=== PATIENT | male | born 1975 | race African-American/Black ===

== ENCOUNTER 2017-02-17 08:45 | Emergency (ER) | payer BC ==
[2017-02-17 08:56] VITALS: BP 132/87
--- NOTE | 2017-02-17 09:50 | RAD ---
INDICATION: Left foot injury. TECHNIQUE: 3 views of the left foot were obtained. FINDINGS: There is soft tissue swelling present over the dorsal aspect of the foot. The bones are normal alignment. No fracture is seen. Joint spaces appear maintained. IMPRESSION: NO EVIDENCE FOR FRACTURE, IF THE PATIENT'S SYMPTOMS PERSIST, RECOMMEND FOLLOW-UP IMAGING.
--- NOTE | 2017-02-17 10:19 | UC ---
Donny Li Angela, [facility] on 02/17/17 at 0923 . Lower Extremity/Ankle HPI - HPI Summary HPI Summary: In Room Note: This pt is as 41 y/o male presenting to [facility] c/o of left foot pain s/p dropping 25 lbs on his left foot yesterday. Pt reports he was finishing lifting weights when he dropped on his left foot. Pt denies knee pain, ankle pain, nausea, vomiting, abd pain, back pain. Pt works for the [employer] and runs [employer] business. He has never been hospitalized. No PMHx. MDs Note: Left foot pain and swelling. Vital signs are stable, blood pressure is 132/87. 5 /10 pain. Pt is not on any medications. Visit history is noncontributory to the present complaint. Nurses Note: Dropped 25 lbs weight on left foot yesterday. States swelling and pain to top of foot since. Denies pain in toes. - History of Current Complaint Chief Complaint: UCLowerExtremity Stated Complaint: FOOT INJURY Time Seen by Provider: 02/17/17 09:12 Hx Obtained From: Patient Onset/Duration: Sudden Onset - s/p dropping 25 lbs weight on left foot Alleviating Factor(s): Nothing Related History: Other - gym injury - Allergies/Home Medications Allergies/Adverse Reactions: Allergies Allergy/AdvReac Type Severity Reaction Status Date / Time Azithromycin Allergy Palpitation Verified 02/17/17 08:49 s PMH/Surg Hx/FS Hx/Imm Hx Other Endocrine History: DENIES: Diabetes Other Cardiovascular History: DENIES: htn - Surgical History Surgical History: None - Family History Known Family History: Positive: Hypertension, Diabetes, Other - Cancer: mother - Social History Alcohol Use: Occasionally Substance Use Type: None Smoking Status (MU): Never Smoked Tobacco Review of Systems Constitutional: Negative Skin: Negative Eyes: Negative ENT: Negative Respiratory: Negative Cardiovascular: Negative Gastrointestinal: Negative Genitourinary: Negative Motor: Negative Neurovascular: Negative Musculoskeletal: Other: - left foot pain Neurological: Negative All Other Systems Reviewed And Are Negative: Yes Physical Exam Triage Information Reviewed: Yes Vital Signs: Initial Vital Signs Temp 97.5 F 02/17/17 08:51 Pulse 68 02/17/17 08:51 Resp 16 02/17/17 08:51 BP 132/87 02/17/17 08:51 Vital Signs Reviewed: Yes - Additional Comments The patient is well-nourished in no acute distress and in no acute pain. The skin is warm and dry and skin color reflects adequate perfusion. HEENT: The head is normocephalic and atraumatic. The pupils are equal and reactive. The conjunctivae are clear and without drainage. Nares are patent and without drainage. Mouth reveals moist mucous membranes and the throat is without erythema and exudate. The external ears are intact. The ear canals are patent and without drainage. The tympanic membranes are intact. Neck is supple with full range of motion and non-tender. There are no carotid bruits. There is no neck vein distension. Respiratory: Chest is non-tender. Lungs are clear to auscultation and breath sounds are symmetrical and equal. Cardiovascular: Hear is regular rate and rhythm. There is no murmur or rub auscultated. There is no peripheral edema and pulses are symmetrical and equal. Abdomen: The abdomen is soft and non-tender. There are normal bowel sounds heard in all four quadrants and there is no organomegaly palpated. Musculoskeletal: There is no back pain noted. There is good capillary refill. There is no peripheral edema or calf tenderness elicited. LLE: ACHILLES TENDON IS INTACT. NEGATIVE ANTERIOR DRAWER. Neurological: Patient is alert and oriented to person, place and time. The patient has symmetrical motor strength in all four extremities. Psychiatric: The patient has an appropriate affect and does not exhibit any anxiety or depression. Diagnostics - Radiology Left Foot XR Xray Interpretation: No Acute Changes - IMPRESSION: No evidence for fracture, if the patient's symptoms persist, recommend follow-up imaging. ED physician has reviewed this radiology report and agrees. Radiology Interpretation Completed By: Radiologist Lower Extremity Course/Dx - Course Course Of Treatment: Medications have been included in the original chart and reviewed. Patient is Urgent/Emergent. BP elevated due to current condition w/o HTN in PMH. On exam of LEFT LOWER EXTREMITY, ACHILLES TENDON IS INTACT. NEGATIVE ANTERIOR DRAWER. XR shows no evidence for fracture, if the patient's symptoms persist, recommend follow-up imaging. - Differential Dx/Diagnosis Provider Diagnoses: Contusion of the left foot. Discharge - Discharge Plan Condition: Stable Disposition: HOME Patient Education Materials: Contusion in Adults (ED) Forms: *Work Release Referrals: Non Staff,Doctor [Primary Care Provider] - Additional Instructions: WE DISCUSSED: 1. YOU have NOT broken any bones. There is soft tissue swelling. 2. Restrict activity until you are pain free. 3. Warm moist heat in the morning; ice after use for acute pain. 4. Recheck at any time for increased pain or disability. The documentation as recorded by the Donny dang Angela accurately reflects the service I personally performed and the decisions made by me, Jayce Monteiro MD.
== END 2017-02-17 10:24 | disposition home or self-care (01) ==
LOC: UCEAST 08:45
DX: S90.32XA Contusion of left foot, initial encounter (principal); W20.8XXA Other cause of strike by thrown, projected or falling object, initial encounter
CPT/HCPCS: 99211; G0463

== ENCOUNTER 2017-04-30 10:52 | Emergency (ER) | payer BC ==
[2017-04-30 11:18] VITALS: BP 138/77
--- NOTE | 2017-04-30 11:53 | UC ---
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 started in nose, now nasal congestion, blowing nasal drainage, worse when lying down, feeling more fatigued. OC eds and VICKS not helping Timing: Constant Severity Initially: Mild Severity Currently: Moderate Character: Cough: Nonproductive Aggravating Factors: Recumbent Position Alleviating Factors: Nothing Associated Signs And Symptoms: Positive: URI, Nasal Congestion, Hoarseness, Sinus Discomfort. Negative: Chills, Dizziness - Allergies/Home Medications Allergies/Adverse Reactions: Allergies Allergy/AdvReac Type Severity Reaction Status Date / Time Azithromycin Allergy Palpitation Verified 04/30/17 11:17 s PMH/Surg Hx/FS Hx/Imm Hx Previously Healthy: Yes GI/ History: Gastroesophageal Reflux - Surgical History Surgical History: None - Family History Known Family History: Positive: Hypertension, Diabetes, Other - Cancer: mother - Social History Occupation: Employed Full-time Lives: With Family Alcohol Use: Occasionally Substance Use Type: None Smoking Status (MU): Never Smoked Tobacco Review of Systems Constitutional: Fatigue Skin: Negative Eyes: Negative ENT: Sore Throat, Sinus Congestion, Sinus Pain/Tenderness Respiratory: Negative Cardiovascular: Negative Gastrointestinal: Negative Neurological: Negative Psychological: Negative All Other Systems Reviewed And Are Negative: Yes Physical Exam Triage Information Reviewed: Yes Appearance: Well-Appearing, No Pain Distress, Well-Nourished Vital Signs: Initial Vital Signs Temp 98.3 F 04/30/17 11:12 Pulse 66 04/30/17 11:12 Resp 18 04/30/17 11:12 BP 138/77 04/30/17 11:12 Pulse Ox 97 04/30/17 11:12 Vital Signs Reviewed: Yes Eyes: Positive: Conjunctiva Clear ENT: Positive: TMs normal, Sinus tenderness, Other - PND Neck exam: Normal Neck: Positive: Supple, Nontender, No Lymphadenopathy Respiratory Exam: Normal Respiratory: Positive: Lungs clear Cardiovascular Exam: Normal Musculoskeletal Exam: Normal Neurological Exam: Normal Psychological Exam: Normal Skin Exam: Normal UC Diagnostic Evaluation - Laboratory O2 Sat by Pulse Oximetry: 97 Respiratory Course/Dx - Differential Dx/Diagnosis Differential Diagnosis/HQI/PQRI: Bronchitis, Influenza, Sinusitis Provider Diagnoses: sinusitis Discharge - Discharge Plan Condition: Good Disposition: HOME Prescriptions: Cefdinir [Cefdinir 300 MG CAP] 300 mg PO BID #20 cap Patient Education Materials: Sinusitis (ED) Referrals: Michelle Cool PA [Primary Care Provider] - 2 Days (If no better) Additional Instructions: drink plenty of fluids Rest Take antibiotic as prescribed
== END 2017-04-30 12:10 | disposition home or self-care (01) ==
LOC: UCEAST 10:52
DX: J32.9 Chronic sinusitis, unspecified (principal)
CPT/HCPCS: 99212; G0463

== ENCOUNTER 2018-03-18 20:07 | Emergency (ER) | payer BC ==
[2018-03-18 20:15] VITALS: BP 124/77
--- NOTE | 2018-03-18 20:44 | UC ---
Cardiac HPI - HPI Summary HPI Summary: 42-year-old male presents with one-week history of intermittent substernal chest burning. Does not associate with any particular activity. Burning is sometimes preceded by a "fluttering" in his chest. States will last for a few minutes and then subsided. He has history of GERD and had endoscopy that did show some esophagitis. States has been taking his Nexium daily as instructed. Denies fever, chills, diaphoresis, dizziness, lightheadedness, felling of racing hear or skipping beats, shortness of breath, abdominal pain, nausea, vomiting, or diarrhea. - History of Current Complaint Chief Complaint: UCChestPain Stated Complaint: CHEST & BACK PAIN Time Seen by Provider: 03/18/18 20:23 Hx Obtained From: Patient Onset/Duration: Sudden Onset, Lasting Minutes, Other - Intermittent Initial Severity: Mild Current Severity: Mild Pain Intensity: 4 Chest Pain Location: Mid Sternal Character: Burning Aggravating Factor(s): Nothing Alleviating Factor(s): Nothing Associated Signs & Symptoms: Positive: Anxiety. Negative: Numbness, Tingling, Weakness, Dizziness, SOB, Syncope, Nausea/Vomiting, Palpitations, Cough, Hemoptysis, Back Pain, Abdominal Pain, Calf Pain/Swelling - Risk Factors Cardiac Risk Factors: Hypertension - Allergy/Home Medications Allergies/Adverse Reactions: Allergies Allergy/AdvReac Type Severity Reaction Status Date / Time azithromycin Allergy Palpitation Verified 03/18/18 20:16 s Home Medications: Home Medications Anxiety Med* PRN 03/18/18 [History] PMH/Surg Hx/FS Hx/Imm Hx Previously Healthy: Yes Cardiovascular History: Hypertension GI/ History: Gastroesophageal Reflux Psychological History: Anxiety - Surgical History Surgical History: None - Family History Known Family History: Positive: Hypertension, Diabetes, Other - Cancer: mother - Social History Occupation: Employed Full-time Lives: With Family Alcohol Use: Occasionally Substance Use Type: None Smoking Status (MU): Never Smoked Tobacco Review of Systems Constitutional: Negative Respiratory: Negative Cardiovascular: Chest Pain - See HPI Gastrointestinal: Negative Neurological: Negative Psychological: Anxious Is Patient Immunocompromised?: No All Other Systems Reviewed And Are Negative: Yes Physical Exam Triage Information Reviewed: Yes Appearance: Well-Appearing, No Pain Distress, Well-Nourished Vital Signs: Initial Vital Signs Temp 97 F 03/18/18 20:10 Pulse 74 03/18/18 20:10 Resp 16 03/18/18 20:10 BP 124/77 03/18/18 20:10 Pulse Ox 99 03/18/18 20:10 Respiratory: Positive: Chest non-tender, Lungs clear, Normal breath sounds, No respiratory distress Cardiovascular: Positive: RRR, No Murmur, Pulses Normal, Brisk Capillary Refill Abdomen Description: Positive: Nontender, No Organomegaly, Soft. Negative: Distended, Guarding Bowel Sounds: Positive: Present Neurological: Positive: Alert Skin Exam: Normal Diagnostics - EKG Cardiac Rate: NL - Rate 68 Cardiac Rhythm: Sinus: Normal Ectopy: None ST Segment: Normal EKG Comparison: No Significant Change - T-wave inversion Lead III present in previous EKG from 07/27/2013 - Assessment/Plan Course Of Treatment: 42 year old male presents with 1 week intermittent mid sternal chest burning. Exam unremarkable. 12-lead EKG NSR. Inverted T-wave lead III that was present in previous EKG from 2013. History of GERD with esophagitis and currently on Nexium 40 mg daily. Suspect this may be related to his GERD however cannot fully rule out cardiogenic origin. Discussed options for evaulation including ED vs outpatient. He is electing to follow up with his PCP. Will have him increase his Nexium to BID and he is to follow up with PCP within 3 days for recheck. Verbalizes understanding and agrees with POC. - Differential Diagnoses - Chest Pain Differential Diagnosis/HQI/PQRI: ACS, Chest Wall, GI Disease - Clinical Impression Provider Diagnoses: GERD Discharge - Sign-Out/Discharge Documenting (check all that apply): Patient Departure All imaging exams completed and their final reports reviewed: No Studies - Discharge Plan Condition: Stable Disposition: HOME Patient Education Materials: Gastroesophageal Reflux Disease (ED) Referrals: Michelle Cool PA [Primary Care Provider] - 3 Days () Additional Instructions: Your EKG performed in the clinic tonight did not show any significant changes from a previous EKG. I suspect that your symptoms are likely related to your gastroesophageal reflux GERD. Try increasing your Nexium to twice a day to see if this makes a difference in her symptoms. Avoid eating fatty foods, spicy foods, alcohol, caffeine, or peppermint as these can sometimes provoke symptoms. Don't eat for at least 3 hours before lying down to go to been. Follow-up with your primary care provider within 3 days. Seek immediate medical attention in the emergency room if you develop persistent chest pain, shortness of breath, become weak or dizzy, feeling like her heart is racing or skipping beats, or have any worsening of symptoms. - Billing Disposition and Condition Condition: STABLE Disposition: Home - Attestation Statements Provider Attestation: I was available for consult. This patient was seen by the JONAH. The patient was not presented to, seen by, or examined by me. -Carlos
== END 2018-03-18 21:04 | disposition home or self-care (01) ==
LOC: UCEAST 20:07
DX: K21.9 Gastro-esophageal reflux disease without esophagitis (principal); Z88.1 Allergy status to other antibiotic agents
CPT/HCPCS: 93005; 99211; G0463

== ENCOUNTER 2018-11-12 10:49 | Emergency (ER) | payer BC ==
[2018-11-12 11:02] VITALS: BP 113/67
[2018-11-12] MEDS ORDERED: Fluorescein Sodium TOPICAL* 1 MG TEST STRIP OPHTHALMIC ONE (11:17)
[2018-11-12] MEDS ORDERED: Tetracaine 0.5% OPTH.SOL 4 ML* 1 DROP BTL LEFT EYE ONE (11:22)
--- NOTE | 2018-11-12 11:23 | UC ---
Eye Complaint HPI - HPI Summary HPI Summary: 43-year-old otherwise healthy male presents one day after injuring his left eye while weed whacking. He states that he wasn't wearing safety glasses and a rock or debris hit him in the left eye. He has had some photophobia and discomfort since. He has foreign body sensation. There is no redness. Though he does get some tearing. His vision is normal. He does not wear contacts or glasses. - History of Current Complaint Chief Complaint: UCEye Stated Complaint: EYE COMPLAINT Time Seen by Provider: 11/12/18 10:58 Hx Obtained From: Patient Pain Intensity: 10 - Allergies/Home Medications Allergies/Adverse Reactions: Allergies Allergy/AdvReac Type Severity Reaction Status Date / Time azithromycin Allergy Palpitation Verified 11/12/18 11:01 s PMH/Surg Hx/FS Hx/Imm Hx Previously Healthy: Yes - seasonal allergies only - Surgical History Surgical History: None - Family History Known Family History: Positive: Hypertension, Diabetes, Other - Cancer: mother - Social History Alcohol Use: Occasionally Substance Use Type: None Smoking Status (MU): Never Smoked Tobacco Review of Systems All Other Systems Reviewed And Are Negative: Yes Constitutional: Positive: Negative Eyes: Positive: Drainage, Photophobia. Negative: Blurred Vision, Diplopia ENT: Positive: Negative Respiratory: Positive: Negative Cardiovascular: Positive: Negative Physical Exam Triage Information Reviewed: Yes Appearance: Well-Appearing, No Pain Distress, Well-Nourished Vital Signs: Initial Vital Signs Temp 99.6 F 11/12/18 10:53 Pulse 64 11/12/18 10:53 Resp 18 11/12/18 10:53 BP 113/67 11/12/18 10:53 Pulse Ox 98 11/12/18 10:53 Vital Signs Reviewed: Yes Eyes: Positive: Conjunctiva Inflamed - mild, L, Other: - Small corneal abrasion with fluorescein uptake at 4 o'clock on cornea. PERRL, no pain with light. No FB with lid eversion. ENT: Positive: Hearing grossly normal Neck: Positive: Supple Respiratory: Positive: Lungs clear Cardiovascular: Positive: RRR Musculoskeletal: Positive: ROM Intact Neurological: Positive: Alert Psychological Exam: Normal Skin Exam: Normal Eye Complaint Course/Dx - Course Course Of Treatment: Vision normal. No redness. No FB. Small abrasion. Pain gone with topical. - Differential Dx/Diagnosis Differential Diagnosis/HQI/PQRI: Corneal Abrasion, Foreign Body, Penetrating Injury, Other - iritis Provider Diagnosis: Corneal abrasion, left Discharge - Sign-Out/Discharge Documenting (check all that apply): Patient Departure All imaging exams completed and their final reports reviewed: No Studies - Discharge Plan Condition: Improved Disposition: HOME Prescriptions: Erythromycin OPHTH.OINT* [Ilotycin OPHTH.OINT*] 1 applic LEFT EYE TID 3 Days #1 ophth.oint Patient Education Materials: Corneal Abrasion (ED) Referrals: Michelle Cool PA [Primary Care Provider] - Aneudy Sarmiento MD [Medical Doctor] - Additional Instructions: Ibuprofen, Tylenol, ice to the eye for discomfort. Call the eye doctor in the morning if you're still having discomfort, visual changes, increased eye pain or worse. - Billing Disposition and Condition Condition: IMPROVED Disposition: Home
[2018-11-12] MEDS ORDERED: Tetracaine 0.5% OPTH.SOL 4 ML* 1 DROP BTL LEFT EYE SCH (11:30)
[2018-11-12] MEDS ORDERED: Ibuprofen TAB* 600 MG PO ONE (11:35)
== END 2018-11-12 11:43 | disposition home or self-care (01) ==
LOC: UCEAST 10:49
DX: S05.02XA Injury of conjunctiva and corneal abrasion without foreign body, left eye, initial encounter (principal); W20.8XXA Other cause of strike by thrown, projected or falling object, initial encounter; Y93.H2 Activity, gardening and landscaping; Y92.9 Unspecified place or not applicable
CPT/HCPCS: 99212; A9270-GY; G0463

== ENCOUNTER 2019-07-02 16:12 | Emergency (ER) | payer BC ==
[2019-07-02] MEDS ORDERED: Ondansetron ODT TAB* 4 MG PO ONE (16:45)
--- NOTE | 2019-07-02 16:45 | UC ---
Dizzy HPI HPI Summary: The patient is a 43-year-old male with the acute onset of severe vertigo that started about 2 PM. He states that since the morning he has had a mild headache that involved the vertex of his head. Since the onset of the vertigo his headache has been more frontal. His headache is currently 6 out of 10. He has severe nausea but no vomiting. He denies any chest pain shortness of breath or palpitations. He denies any visual complaints. He has had trouble ambulating. His vertigo is worse if he extends or flexes his neck. His vertigo is worse if he closes his eyes. He denies any diaphoresis. - History Of Current Complaint Chief Complaint: UCDizziness Stated Complaint: DIZZY Time Seen by Provider: 07/02/19 16:29 Hx Obtained From: Patient Onset/Duration: Sudden Onset, Lasting Hours Timing: Constant Severity Initially: Severe Severity Currently: Severe Pain Intensity: 6 Pain Scale Used: 0-10 Numeric Character: Room Spinning Aggravating Factor(s): Headache, Position Change Alleviating Factor(s): Other - sitting and keeping head still Associated Signs And Symptoms: Positive: Nausea, Unsteady Gait. Negative: Vomiting, Diaphoresis, Tinnitus, Chest Pain, SOB, Palpitations, Visual Changes, Decreased Oral Intake, Change In Medication, Change In Diet, OTC Medications - Risk Factors Cardiac Risk Factors: Hypertension CVA Risk Factor: Hypertension - Allergies/Home Medications Allergies/Adverse Reactions: Allergies Allergy/AdvReac Type Severity Reaction Status Date / Time azithromycin Allergy Palpitation Verified 07/02/19 16:25 s PMH/Surg Hx/FS Hx/Imm Hx Previously Healthy: Yes Cardiovascular History: Hypertension GI/ History: Gastroesophageal Reflux - Surgical History Surgical History: None Surgery Procedure, Year, and Place: recent EGD for GERD - Family History Known Family History: Positive: Hypertension, Diabetes, Other - Cancer: mother - Social History Alcohol Use: Occasionally Substance Use Type: None Smoking Status (MU): Never Smoked Tobacco Review of Systems All Other Systems Reviewed And Are Negative: Yes Constitutional: Positive: Negative Skin: Positive: Negative Eyes: Positive: Negative ENT: Positive: Negative Respiratory: Positive: Negative Cardiovascular: Positive: Negative Gastrointestinal: Positive: Negative Genitourinary: Positive: Negative Motor: Positive: Negative Neurovascular: Positive: Negative Musculoskeletal: Positive: Negative Neurological: Positive: Headache Psychological: Positive: Negative Physical Exam Triage Information Reviewed: Yes Appearance: Well-Appearing, No Pain Distress, Well-Nourished Vital Signs: Initial Vital Signs Temp 98 F 07/02/19 16:22 Pulse 65 07/02/19 16:22 Resp 16 07/02/19 16:22 BP 148/84 07/02/19 16:22 Pulse Ox 98 07/02/19 16:22 Vital Signs Reviewed: Yes Eyes: Positive: Conjunctiva Clear, Other: - small pupils but reactive, nystagmus ENT: Positive: Hearing grossly normal, TMs normal. Negative: Nasal congestion, Nasal drainage, Tonsillar swelling, Tonsillar exudate, Trismus, Muffled voice, Hoarse voice, Sinus tenderness Neck: Positive: Supple, Nontender, No Lymphadenopathy, Other: - no bruits Respiratory: Positive: Lungs clear, Normal breath sounds, No respiratory distress, No accessory muscle use Cardiovascular: Positive: RRR, No Murmur Musculoskeletal: Positive: ROM Intact, No Edema Neurological: Positive: Alert, Other: - GCG 15/15, no facial droop/no pronator drift/dtrs symmetrical Psychological Exam: Normal Skin Exam: Normal Diagnostics - Laboratory Lab Results: BS 127 - EKG Cardiac Rate: NL Cardiac Rhythm: Sinus: Normal Ectopy: None EKG Comparison: No Significant Change - unchanged from 2018 Summary of EKG Findings: NSR, NSIVCD, T's inferiorily Re-Evaluation - Re-Evaluation First Eval Re-Evaluation Time: 17:13 Change: Worse - on return from CT his vertigo is worse. GOMEZ unchanged. Still about a 6/10 Second Eval Re-Evaluation Time: 17:45 Change: Unchanged - still unable to move without severe symptoms/will try meclizine Dizzy Course/Dx - Course Course Of Treatment: I discussed CT results/EKG results with family Explained that I did like the fact he was unable to ambulate without assistance that that his vertigo was severe I suggested transfer to ER for further investigation and treatment of his symptoms Patient declined EMS transfer despite me saying that I thought it would expedite his evaluation - Differential Dx/Diagnosis Provider Diagnosis: Severe vertigo, Headache Discharge ED - Sign-Out/Discharge Documenting (check all that apply): Patient Departure All imaging exams completed and their final reports reviewed: Yes - Discharge Plan Condition: Fair Disposition: HOME-RECOMMEND TO ED Referrals: Rosamaria Maravilla MD [Primary Care Provider] - Additional Instructions: please go directly to the ER for further evaluation and treatment of your vertigo - Billing Disposition and Condition Condition: FAIR Disposition: Home-Recommend to ED
[2019-07-02 17:36] VITALS: BP 153/74
[2019-07-02] MEDS ORDERED: Meclizine TAB* 12.5 MG PO ONE (17:41)
== END 2019-07-02 17:55 | disposition home health service (06) ==
LOC: UCEAST 16:12
DX: R51 Headache (principal); I10 Essential (primary) hypertension; Z88.1 Allergy status to other antibiotic agents
CPT/HCPCS: 70450; 93005; 99212; A9270-GY; G0463

== ENCOUNTER 2019-07-02 18:15 | Emergency (ER) | payer BC ==
--- NOTE | 2019-07-02 18:40 | ED ---
Dizziness - HPI Summary HPI Summary: 43 year old male presents to the ED with a chief complaint of dizziness starting this afternoon. Patient woke up this morning with a headache. He went outside in the cold to wash his car and then went out to do errands. He started to feel like the room was spinning in the afternoon. He ate some food but still felt dizzy. His blood pressure was 133 after he ate. Patient claims it feels as if he did not take his blood pressure medications, although he did. Patient still feels dizzy. He denies chest pain or palpitations. He went to urgent care today, who conducted a CT scan and an EKG and diagnosed him with vertigo. They gave him meclizine 25 mg but this did not alleviate his symptoms. His mother in law last night, which made him very sad and he cried. PMHx of HTN. FHx DM. Patient does not smoke tobacco. He occasionally drinks alcohol. No PSHx. - History Of Current Complaint Chief Complaint: EDDizziness Stated Complaint: VERTIGO PER PT Time Seen by Provider: 07/02/19 18:26 Hx Obtained From: Patient Onset/Duration: Unknown Timing: Constant Character: Room Spinning Aggravating Factor(s): Headache Associated Signs And Symptoms: Negative: Chest Pain, Palpitations, Change In Medication - Allergies/Home Medications Allergies/Adverse Reactions: Allergies Allergy/AdvReac Type Severity Reaction Status Date / Time azithromycin Allergy Palpitation Verified 07/02/19 18:21 s Home Medications: Home Medications Olmesartan/Hydrochlorothiazide [Olmesartan-Hctz 40-12.5 mg Tab] 1 tab PO DAILY 07/02/19 [History Confirmed 07/02/19] PMH/Surg Hx/FS Hx/Imm Hx Endocrine/Hematology History: Denies: Hx Diabetes, Hx Thyroid Disease Cardiovascular History: Reports: Hx Hypertension Respiratory History: Reports: Hx Seasonal Allergies Denies: Hx Asthma, Hx Chronic Obstructive Pulmonary Disease (COPD) GI History: Reports: Other GI Disorders - pain 4 quads, has not felt well since mar Denies: Hx Ulcer - Surgical History Surgical History: None Surgery Procedure, Year, and Place: recent EGD for GERD Infectious Disease History: No Infectious Disease History: Denies: Hx Clostridium Difficile, Hx Hepatitis, Hx Human Immunodeficiency Virus (HIV), Hx of Known/Suspected MRSA, Hx Shingles, Hx Tuberculosis, Hx Known/ Suspected VRE, Hx Known/Suspected VRSA, History Other Infectious Disease, Traveled Outside the [place] in Last 30 Days - Family History Known Family History: Positive: Hypertension, Diabetes, Other - Cancer: mother - Social History Alcohol Use: Occasionally Substance Use Type: Reports: None Smoking Status (MU): Never Smoked Tobacco Review of Systems Negative: Palpitations, Chest Pain Neurological: Other - dizziness Positive: Headache All Other Systems Reviewed And Are Negative: Yes Physical Exam - Summary Physical Exam Summary: VITAL SIGNS: Reviewed. GENERAL: Patient is a well-developed and nourished who is lying comfortable in the stretcher.Patient is not in any acute respiratory distress. HEAD AND FACE: No signs of trauma. No ecchymosis, hematomas or skull depressions. No sinus tenderness. EYES: PERRLA, EOMI x 2, No injected conjunctiva, no nystagmus. No photophobia. EARS: Hearing grossly intact. Ear canals and tympanic membranes are within normal limits. MOUTH: Oropharynx within normal limits. NECK: Supple, trachea is midline, no adenopathy, no JVD, no carotid bruit, no c- spine tenderness, neck with full ROM. No meningeal signs, no Kernig's or brudzinskis signs. CHEST: Symmetric, no tenderness at palpation. LUNGS: Clear to auscultation bilaterally. No wheezing or crackles. CVS: Regular rate and rhythm, S1 and S2 present, no murmurs or gallops appreciated. ABDOMEN: Soft, non-tender. No signs of distention. No rebound, no guarding, and no masses palpated. Bowel sounds are normal. EXTREMITIES: FROM in all major joints, no edema, no cyanosis or clubbing. NEURO: Alert and oriented x 3. No acute neurological deficits. Speech is normal and follows commands. SKIN: Dry and warm. GCS: 15 Triage Information Reviewed: Yes Vital Signs On Initial Exam: Initial Vitals Temp Pulse Resp BP Pulse Ox 97.4 F 70 16 141/80 97 07/02/19 18:17 07/02/19 18:17 07/02/19 18:17 07/02/19 18:17 07/02/19 18:17 Vital Signs Reviewed: Yes Procedures - Sedation Patient Received Moderate/Deep Sedation with Procedure: No Diagnostics - Vital Signs Vital Signs Temp Pulse Resp BP Pulse Ox 07/02/19 18:17 97.4 F 70 16 141/80 97 - Laboratory Lab Results: Lab Results 07/02/19 Range/Units 18:20 Influenza A (Rapid) Pending Influenza B (Rapid) Pending Result Diagrams: 07/02/19 18:49 07/02/19 18:49 Lab Statement: Any lab studies that have been ordered have been reviewed, and results considered in the medical decision making process. - Radiology CXR Radiology Interpretation Completed By: ED Physician Summary of Radiographic Findings: IMPRESSION: No acute processes. Pending official read. An ED physician has interpreted and reviewed this scan. - EKG 1838 Cardiac Rate: NL - 69 bpm EKG Rhythm: Sinus Rhythm ST Segment: Normal Ectopy: None EKG Comparison: No Significant Change Summary of EKG Findings: EKG at 1838 shows normal sinus rhythm at [address] elevations. Normal axis. Similar to today at 1527. An ED physician has reviewed and interpreted this report. Dizzy Course/Dx - Course Assessment/Plan: 43 year old male presents to the ED with a chief complaint of dizziness starting this afternoon. Patient woke up this morning with a headache. He went outside in the cold to wash his car and then went out to do errands. He started to feel like the room was spinning in the afternoon. He ate some food but still felt dizzy. His blood pressure was 133 after he ate. Patient claims it feels as if he did not take his blood pressure medications, although he did. Patient still feels dizzy. He denies chest pain or palpitations. He went to urgent care today, who conducted a CT scan and an EKG and diagnosed him with vertigo. They gave him meclizine 25 mg but this did not alleviate his symptoms. His mother in law last night, which made him very sad and he cried. PMHx of HTN. FHx DM. Patient does not smoke tobacco. He occasionally drinks alcohol. No PSHx. Head CT impression: Negative for acute intracranial process evident. EKG: NSR w/o ST elevations. Blood work w/o a significant abnormality except for slight anemia. Influenza A & B negative. In the ED course the patient was given meclizine and the symptoms are resolved. Patient was also given potassium since his potassium level was slightly decreased. The patient also has some slight anemia. The patient also was given ibuprofen for headache. Patient also reports he is having a runny nose that he is having a common cold. At this point, I discussed all the findings and test results with the patient. Patient was instructed to return to the emergency room immediately if any of the symptoms return or worsen. Plan of care was discussed with the patient and patient understands and agrees. All questions were answered at patient satisfaction. Patient understands and agrees. Neurological exam before discharge: Patient is alert and oriented x 3. No acute neurological deficits. Patient's vital signs are stable. Patient is to follow up with PCP in the next 2 3 days. They understand and agree. The plan of care was discussed with the patient and patient understands and agrees with the plan of care. All questions were answered at patient satisfaction. There were no further complaints or concerns. - Diagnoses Provider Diagnoses: Vertigo Discharge ED - Sign-Out/Discharge Documenting (check all that apply): Patient Departure - discharge home - Discharge Plan Condition: Stable Disposition: HOME Prescriptions: Meclizine TAB* [Antivert 12.5 TAB*] 25 mg PO TID PRN #30 tab PRN Reason: Vertigo Patient Education Materials: Vertigo (ED) Referrals: Rosamaria Maravilla MD [Primary Care Provider] - Additional Instructions: Follow up with your primary care provider in 2-3 days. Return to the Emergency Room if you experience new or worsened symptoms. - Billing Disposition and Condition Condition: STABLE Disposition: Home - Attestation Statements Document Initiated by Krunal: Yes Documenting Scribe: Crescencio Bonilla Provider For Whom Krunal is Documenting (Include Credential): Montrell Emmanuel MD Scribe Attestation: Crescencio Li scribed for Montrell Emmanuel MD on 07/02/19 at 2129. Scribe Documentation Reviewed: Yes Provider Attestation: The documentation as recorded by the Crescencio dang accurately reflects the service I personally performed and the decisions made by me, Montrell Emmanuel MD Status of Scribe Document: Viewed
[2019-07-02 18:52] LABS: Influenza A Molecular NEGATIVE (Negative); Influenza B Molecular NEGATIVE (Negative)
[2019-07-02 19:00] LABS: ABS Lymphocytes 0.7 10^3/ul (1.0-4.8); ABS Monocytes 0.3 10^3/ul (0-0.8); ABS Neutrophils 3.8 10^3/ul (1.5-7.7); Hematocrit 38 % (42-52); Lymphocyte % 15.2 %; Mean Corpuscular HGB Conc 34 g/dL (31-36); Mean Corpuscular Hemoglobin 26 pg (27-31); Mean Corpuscular Volume 77 fL (80-94); Mean Platelet Volume 8.5 fL (7.4-10.4); Nucleated Red Blood Cells % 0.1; Platelet Count 210 10^3/uL (150-450); Red Blood Count 4.93 10^6 /uL (4.18-5.48); Red Cell Distribution Width 13 % (10-15); White Blood Count 4.9 10^3/uL (3.5-10.8)
[2019-07-02] MEDS ORDERED: Meclizine TAB* 12.5 MG PO ONE (19:03)
[2019-07-02 19:11] LABS: Urine Appearance Clear; Urine Bilirubin Negative (Negative); Urine Blood 1+ (Negative); Urine Color Yellow; Urine Glucose Negative (Negative); Urine Ketones Negative (Negative); Urine Nitrite Negative (Negative); Urine Protein Negative (Negative); Urine Specific Gravity 1.017 (1.010-1.030); Urine Urobilinogen Negative (Negative)
[2019-07-02 19:18] LABS: Urine Bacteria Absent (Absent); Urine Red Blood Cell Trace(0-2/hpf) (Absent); Urine White Blood Cell Trace(0-5/hpf) (Absent)
[2019-07-02 19:21] LABS: ALT 20 U/L (7-52); AST 20 U/L (13-39); Albumin 4.3 g/dL (3.2-5.2); Albumin/Globulin Ratio 1.5 (1-3); Alkaline Phosphatase 68 U/L (34-104); Anion Gap 7 mmol/L (2-11); Blood Urea Nitrogen 16 mg/dL (6-24); C Reactive Protein 1.32 mg/L (<8.01); CO2 Carbon Dioxide 30 mmol/L (22-32); Calcium 9.1 mg/dL (8.6-10.3); Chloride 101 mmol/L (101-111); Creatine Kinase 318 U/L (10-223); EGFR African American 84.1 (>60); EGFR Non-African American 69.5 (>60); Globulin 2.8 g/dL (2-4); Glucose 136 mg/dL (70-100); Magnesium 1.9 mg/dL (1.9-2.7); Potassium 3.3 mmol/L (3.5-5.0); Sodium 138 mmol/L (135-145); Total Protein 7.1 g/dL (6.4-8.9)
[2019-07-02 19:29] LABS: Alcohol < 10 mg/dL (<10)
[2019-07-02 19:43] LABS: TSH (Thyroid Stimulating Horm) 0.94 mcIU/mL (0.34-5.60)
[2019-07-02] MEDS ORDERED: Potassium Chlor TAB* 20 MEQ TAB.ER PO ONE (20:05)
[2019-07-02] MEDS ORDERED: Ibuprofen TAB* 800 MG PO ONE (20:10)
[2019-07-02 20:20] VITALS: BP 147/81
== END 2019-07-02 20:18 | disposition home or self-care (01) ==
LOC: ED 18:15
DX: R42 Dizziness and giddiness (principal); R51 Headache; I10 Essential (primary) hypertension; Z79.899 Other long term (current) drug therapy
CPT/HCPCS: 36415; 71045; 80053; 80320; 81003; 81015; 82550; 83605; 83735; 83880; 84443; 84484; 85025; 86140; 87086; 93005; 99283; A9270-GY; G0480